=== PATIENT | male | born 1960 | race African-American/Black ===

== ENCOUNTER 2020-05-01 23:36 | Emergency (ER) | payer SELFPAY ==
[2020-05-02] MEDS ORDERED: Pantoprazole 40 MG VIAL ONE (00:21)
[2020-05-02] MEDS ORDERED: Sodium Chloride 0.9% 1,000 ML ONE (00:21)
[2020-05-02] MEDS ORDERED: Ondansetron PF 4 MG/2 ML Vial ONE (00:21)
[2020-05-02 00:27] LABS: #Basophils 0.1 thou/uL (0.0-0.2); #Lymphocytes 1.8 thou/uL (1.20-3.40); #Monocytes 0.6 thou/uL (0.11-0.59); #Neutrophils 3.4 thou/uL (1.40-6.50); %Basophils 1.8 % (0.0-1.0); %Eosinophils 0.5 % (0.0-10.0); %Monocytes 9.8 % (0.0-10.0); %Neutrophils 56.9 % (42.0-75.0); Hemoglobin 15.8 g/dL (14.0-18.0); Mean Corpuscular HGB CONC 31.3 g/dL (32.0-36.0); Mean Corpuscular Hemoglobin 30.8 pg (27.0-31.0); Mean Corpuscular Volume 98.5 fL (78.0-98.0); Mean Platelet Volume 7.2 fL (7.4-10.4); Platelet Count 221 thou/uL (130-400); RBC Distribution Width 12.6 % (11.5-14.5); Red Blood Cell (RBC) Count 5.12 mill/uL (4.70-6.10); White Blood Cell (WBC) Count 5.9 thou/uL (4.8-10.8)
[2020-05-02 00:46] LABS: ALT (SGPT) 92 U/L (8-55); AST (SGOT) 188 U/L (5-34); Albumin 4.5 g/dL (3.5-5.0); Alkaline Phosphatase 102 U/L (40-110); Anion Gap 20 mmol/L (10-20); BUN (Urea Nitrogen) 7 mg/dL (8.4-25.7); Bilirubin, Total 1.9 mg/dL (0.2-1.2); Calc. Creatinine Clearance 0 mL/min (70-130); Carbon Dioxide 26 mmol/L (22-29); Chloride 95 mmol/L (98-107); Estimated GFR-MDRD 82; Globulin 3.6 g/dL (2.4-3.5); Glucose 124 mg/dL (70-105); Lipase 77 U/L (8-78); Potassium 3.9 mmol/L (3.5-5.1); Protein, Total 8.1 g/dL (6.0-8.3); Sodium 137 mmol/L (136-145)
[2020-05-02 01:01] LABS: Bilirubin Small (Negative); Blood, Urine Small (Negative); Clarity Clear (Clear); Glucose, Urine (Dipstick) Negative (Negative); Ketone, Urine 15 mg/dL (Negative); Leukocyte Negative (Negative); Nitrite Negative (Negative); Protein, Urine (Dipstick) 100 mg/dL (Neg-Trace); Urobilinogen 0.2 mg/dL (Less than 2)
[2020-05-02 01:08] LABS: Bacteria/HPF Rare-Few HPF (None Seen); Mucous/LPF Rare LPF (<2+); Specific Gravity, Urine 1.019 (1.002-1.036); Squamous Epithelial 0-3 HPF (0-3); WBC/HPF None Seen HPF (0-3)
== END 2020-05-02 01:40 | disposition home or self-care (01) ==
LOC: MADERS 23:36
DX: K29.20 Alcoholic gastritis without bleeding (principal); K70.10 Alcoholic hepatitis without ascites; Z71.6 Tobacco abuse counseling; F17.210 Nicotine dependence, cigarettes, uncomplicated
CPT/HCPCS: 80053; 81003; 81015; 83605; 83690; 85025; 96361; 96374; 96375; 99406; C9113; J2405; J7050

== ENCOUNTER 2022-05-05 12:23 | Emergency (ER) | payer BC ==
[~2022-05-05 12:23] MED LIST: Iopamidol 370 76% 100 ML VIAL ONE
[2022-05-05] MEDS ORDERED: Pantoprazole 40 MG VIAL ONE (13:00)
[2022-05-05] MEDS ORDERED: Sodium Chloride 0.9% 1,000 ML ONE (13:00)
[2022-05-05] MEDS ORDERED: Ondansetron PF 4 MG/2 ML Vial ONE (13:00)
[2022-05-05 13:12] LABS: Calcium 9.3 mg/dL (7.8-10.44); Chloride 95 mmol/L (98-107); Potassium 3.7 mmol/L (3.5-5.1); Sodium 133 mmol/L (136-145)
[2022-05-05 13:17] LABS: Hemoglobin 15.2 g/dL (14.0-18.0); Mean Corpuscular HGB CONC 31.5 g/dL (32.0-36.0); Mean Corpuscular Hemoglobin 30.7 pg (27.0-31.0); Mean Corpuscular Volume 97.5 fL (78.0-98.0); Mean Platelet Volume 8.5 fL (7.4-10.4); Platelet Count 215 thou/uL (130-400); RBC Distribution Width 12.4 % (11.5-14.5); Red Blood Cell (RBC) Count 4.96 mill/uL (4.70-6.10); White Blood Cell (WBC) Count 7.5 thou/uL (4.8-10.8)
[2022-05-05 13:38] LABS: Carbon Dioxide 20 mmol/L (22-29); Glucose 97 mg/dL (70-105); Protein, Total 7.6 g/dL (6.0-8.3)
[2022-05-05 13:38] LABS: MDiff Complete? YES; Manual Diff?? YES; Neutrophil 71 % (42-75)
[2022-05-05 13:39] LABS: Lymphocytes 21 % (21-51); Metamyelocyte 1 % (0-0); Monocytes 5 % (0-10); Platelet Morphology Comment Appears Adequate; RBC Morphology Normal; Reactive Lymphocytes 2 % (0-10)
[2022-05-05 13:39] LABS: Albumin 4.5 g/dL (3.5-5.0); Globulin 3.1 g/dL (2.4-3.5)
[2022-05-05 13:48] LABS: ALT (SGPT) 21 U/L (8-55); AST (SGOT) 28 U/L (5-34); Alkaline Phosphatase 77 U/L (40-110); BUN (Urea Nitrogen) 7 mg/dL (8.4-25.7); Calc. Creatinine Clearance 0 mL/min (70-130); Estimated GFR 99
[2022-05-05 13:49] LABS: Anion Gap 23 mmol/L (10-20)
[2022-05-05 14:08] LABS: Bilirubin Small (Negative); Blood, Urine Small (Negative); Clarity Clear (Clear); Glucose, Urine (Dipstick) Negative (Negative); Ketone, Urine 80 mg/dL (Negative); Leukocyte Negative (Negative); Nitrite Negative (Negative); Protein, Urine (Dipstick) 100 mg/dL (Neg-Trace); Urobilinogen 0.2 mg/dL (Less than 2); pH, Urine 5.5 (5.0-9.0)
[2022-05-05 14:13] LABS: Bacteria/HPF Rare-Few HPF (None Seen); Mucous/LPF Few LPF (<2+); RBC/HPF 0-3 HPF (0-3); Squamous Epithelial 0-3 HPF (0-3); WBC/HPF None Seen HPF (0-3)
== END 2022-05-05 15:30 | disposition home or self-care (01) ==
LOC: MADERS 12:23
DX: K85.90 Acute pancreatitis without necrosis or infection, unspecified (principal); E86.0 Dehydration; K21.9 Gastro-esophageal reflux disease without esophagitis; F17.210 Nicotine dependence, cigarettes, uncomplicated; Z79.899 Other long term (current) drug therapy
CPT/HCPCS: 74177; 80053; 81003; 81015; 83690; 85025; 96361; 96374; 96375; C9113; J2405; J7050; Q9967

== ENCOUNTER 2023-06-17 08:30 | Outpatient (CLI) | payer OTHER | END 2023-06-17 08:31 | disposition home or self-care (01) | LOC: MADRAD 08:30 | PROVIDERS: ATTEND Physician Assistant | DX: R63.4 Abnormal weight loss (principal) | CPT/HCPCS: 71046 ==